=== PATIENT | male | born 1990 | race Caucasian/White ===

== ENCOUNTER 2018-10-19 14:29 | Emergency (ER) | payer OTHER ==
[2018-10-19] MEDS ORDERED: Ketorolac Tromethamine 30 MG/ML VIAL ONE (15:07)
[2018-10-19 15:23] LABS: #Basophils 0.1 thou/uL (0.0-0.2); #Eosinphils 0.1 thou/uL (0.0-0.7); #Lymphocytes 1.9 thou/uL (1.20-3.40); #Monocytes 0.5 thou/uL (0.11-0.59); #Neutrophils 4.2 thou/uL (1.40-6.50); %Basophils 1.2 % (0.0-1.0); %Eosinophils 1.2 % (0.0-10.0); %Lymphocytes 27.9 % (21.0-51.0); %Monocytes 7.5 % (0.0-10.0); %Neutrophils 62.2 % (42.0-75.0); Hemoglobin 15.5 g/dL (14.0-18.0); Mean Corpuscular HGB CONC 32.3 g/dL (32.0-36.0); Mean Corpuscular Hemoglobin 28.5 pg (27.0-31.0); Mean Corpuscular Volume 88.2 fL (78.0-98.0); Mean Platelet Volume 9.5 fL (7.4-10.4); Platelet Count 169 thou/uL (130-400); RBC Distribution Width 11.1 % (11.5-14.5); Red Blood Cell (RBC) Count 5.46 mill/uL (4.70-6.10); White Blood Cell (WBC) Count 6.8 thou/uL (4.8-10.8)
[2018-10-19 15:39] LABS: ALT (SGPT) 52 U/L (8-55); AST (SGOT) 22 U/L (5-34); Albumin 4.1 g/dL (3.5-5.0); Alkaline Phosphatase 185 U/L (40-150); Anion Gap 11 mmol/L (10-20); BUN (Urea Nitrogen) 10 mg/dL (8.9-20.6); Bilirubin, Total 0.3 mg/dL (0.2-1.2); Calc. Creatinine Clearance 0 mL/min (70-130); Calcium 9.3 mg/dL (7.8-10.44); Carbon Dioxide 27 mmol/L (22-29); Chloride 106 mmol/L (98-107); Estimated GFR-MDRD 85; Globulin 2.8 g/dL (2.4-3.5); Glucose 105 mg/dL (70-105); Lipase 13 U/L (8-78); Potassium 4.2 mmol/L (3.5-5.1); Protein, Total 6.9 g/dL (6.0-8.3); Sodium 140 mmol/L (136-145)
--- NOTE | 2018-10-19 15:45 | CT ---
CT Abdomen Pelvis WO Con 10/19/2018 3:08 PM HISTORY: Abdominal pain with onset of symptoms 3 days ago. Emesis. Patient states pain radiates to the right u pper and right lower quadrants. COMPARISON: None. Technique: Multiple contiguous axial images were obtained and a CT of the abdomen and pelvis without IV contrast . Coronal reformats were performed. FINDINGS: This examination is limited for the evaluation of solid organs and vascular structures due to the lac k of intravenous contrast. Lower Chest: within normal limits. Abdomen: Liver: within normal limits. Gallbladder: No calcified gallstones. Normal caliber wall. Pancreas: within normal limits. Spleen: within normal limits. Adrenals: within normal limits. Kidneys: No renal calculi are seen bilaterally, and there is no hydronephrosis. Pelvis: Reproductive Organs: No pelvic masses. Ureters: No ureteral calculi are seen, and there is no dilatation of either ureter. Bladder: within normal limits. Bowel: Normal caliber.The appendix is normal in caliber. Lymph Nodes: No enlarged lymph nodes. Peritoneum: No free fluid, free air, or fluid collection. Vessels: Abdominal aorta is normal in caliber.. Retroperitoneum: within normal limits. Abdominal Wall: within normal limits. Bones: within normal limits. IMPRESSION: 1. No renal or ureteral calculi are seen bilaterally.
[2018-10-19 16:10] LABS: Bilirubin Negative (Negative); Blood, Urine Negative (Negative); Clarity Clear (Clear); Glucose, Urine (Dipstick) Negative (Negative); Leukocyte Negative (Negative); Nitrite Negative (Negative); Protein, Urine (Dipstick) Negative (Neg-Trace); Urobilinogen 0.2 mg/dL (0.2-1.0); pH, Urine 6.5 (5.0-9.0)
== END 2018-10-19 16:25 | disposition home or self-care (01) ==
LOC: SCSER 14:29
DX: R10.11 Right upper quadrant pain (principal); R10.31 Right lower quadrant pain; F17.210 Nicotine dependence, cigarettes, uncomplicated
CPT/HCPCS: 74176; 80053; 81003; 83605; 83690; 85025; 96374; J1885

== ENCOUNTER 2019-01-26 15:04 | Emergency (ER) | payer OTHER, SELFPAY ==
--- NOTE | 2019-01-26 16:22 | RAD ---
RIGHT HAND THREE VIEWS: INDICATIONS: Right hand pain. IMPRESSION: No acute fracture or subluxation is evident. No radiopaque foreign body is noted. POS: [facility]
== END 2019-01-26 16:31 | disposition home or self-care (01) ==
LOC: SCSER 15:04
DX: S60.221A Contusion of right hand, initial encounter (principal); K52.9 Noninfective gastroenteritis and colitis, unspecified; F17.210 Nicotine dependence, cigarettes, uncomplicated; K21.9 Gastro-esophageal reflux disease without esophagitis; Z71.6 Tobacco abuse counseling; Y04.0XXA Assault by unarmed brawl or fight, initial encounter; Y93.71 Activity, boxing
CPT/HCPCS: 99406